=== PATIENT | female | born 1985 | race Caucasian/White ===

== ENCOUNTER 2024-01-07 12:06 | Emergency (ER) | payer BC ==
[~2024-01-07] VITALS: Ht 154.9 cm; Wt 63.5 kg
[2024-01-07 12:18] VITALS: BP 118/73; TEMP 98.4; O2SAT 96
[2024-01-07] MEDS ORDERED: FLUT16SP BNOSTRILS (14:16)
== END 2024-01-07 14:23 | disposition home or self-care (01) ==
LOC: ER 12:06
DX: J34.89 Other specified disorders of nose and nasal sinuses (principal); R09.81 Nasal congestion; R09.82 Postnasal drip; R09.89 Other specified symptoms and signs involving the circulatory and respiratory systems; J45.909 Unspecified asthma, uncomplicated; Z88.0 Allergy status to penicillin; Z60.2 Problems related to living alone

== ENCOUNTER 2024-10-13 00:48 | Emergency (ER) | payer BC ==
[~2024-10-13] VITALS: Ht 154.9 cm; Wt 59.0 kg
[~2024-10-13 00:48] MED LIST: FLUT16SP BNOSTRILS
[2024-10-13 02:26] VITALS: BP 116/68; TEMP 98; O2SAT 98
[2024-10-13] MEDS ORDERED: dexaMETHasone SOD PHOSPHATE 4 MG/ML VIAL ONE (02:32)
[2024-10-13] MEDS: dexaMETHasone SOD PHOSPHATE 4 MG/ML VIAL IM ONE (02:35)
[2024-10-13] MEDS ORDERED: ERYT3.5O9 RIGHTEYE (02:37)
[2024-10-13] MEDS ORDERED: PRED50TA PO (02:37)
== END 2024-10-13 02:44 | disposition home or self-care (01) ==
LOC: ER 00:50
DX: T78.3XXA Angioneurotic edema, initial encounter (principal); J45.909 Unspecified asthma, uncomplicated; Z79.52 Long term (current) use of systemic steroids; Z88.0 Allergy status to penicillin; Z60.2 Problems related to living alone; X58.XXXD Exposure to other specified factors, subsequent encounter; Y93.89 Activity, other specified; Y92.89 Other specified places as the place of occurrence of the external cause; Y99.8 Other external cause status
CPT/HCPCS: 99283; 96372; J1100